=== PATIENT | male | born 1995 | race Caucasian/White ===

== ENCOUNTER 2021-05-18 03:34 | Emergency (ER) | payer MEDICAID ==
[~2021-05-18] VITALS: Ht 180.3 cm; Wt 85.0 kg
[2021-05-18 03:41] VITALS: BP 144/96
[2021-05-18] MEDS ORDERED: FLUORESCEIN SODIUM 1MG/STRIP LEFTEYE ONE (04:15)
[2021-05-18] MEDS ORDERED: TETRACAINE 0.5% OPHTH DROPS 4ML LEFTEYE ONE (04:15)
[2021-05-18] MEDS ORDERED: ACETAMINOPHEN 325MG TABLET PO ONE (04:30)
[2021-05-18] MEDS ORDERED: DEXT15DR5 EACHEYE (05:26)
[2021-05-18] MEDS ORDERED: POLY10DR EACHEYE (05:26)
== END 2021-05-18 06:05 | disposition home or self-care (01) ==
LOC: ER 03:34
DX: H10.33 Unspecified acute conjunctivitis, bilateral (principal)
CPT/HCPCS: 99283